=== PATIENT | female | born 1970 | race Caucasian/White ===

== ENCOUNTER 2023-06-16 07:30 | Outpatient (CLI) | payer OTHER, SELFPAY ==
--- NOTE | ~2023-06-16 | CT_ITS ---
CT of the Abdomen and Pelvis: Indication: Right upper quadrant pain Technique: 2.5 mm axial scans were obtained through the abdomen and pelvis following intravenous adm inistration of 100 cc of Omnipaque 350. Dose reduction technique was used on this scan by utilizing a utomated exposure control and iterative reconstruction technique. The dose-length product (DLP) was 5 55.39 mGy-cm. Findings: Scans through the lung bases are unremarkable. The liver, spleen, pancreas, gallbladder, adrenals and kidneys are within normal limits. No evidence of aortic aneurysm. No lymphadenopathy. No bowel obstruction or bowel wall thickening. There is no evidence to suggest acute appendicitis. Images through the pelvis were performed. Urinary bladder unremarkable. Patient appears to be post hy sterectomy. No pelvic mass seen. No ascites. Impression: No significant abnormalities seen. Reviewed, dictated and finalized at [facility]. HIATRIC ORDERLY Impression: No significant abnormalities seen.
== END 2023-06-16 07:31 | disposition home or self-care (01) ==
PROVIDERS: Visit Provider Nurse Practitioner
DX: R10.11 Right upper quadrant pain (principal); G89.29 Other chronic pain; K21.9 Gastro-esophageal reflux disease without esophagitis
CPT/HCPCS: 74177; Q9967

== ENCOUNTER 2023-09-29 00:59 | Day surgery (SDC) | payer OTHER, SELFPAY ==
[2023-09-16 14:54] VITALS: BMI 30.2
[2023-09-29 08:20] VITALS: BP 118/61; PULSE 90; RESP 18; TEMP 36.7; O2SAT 100; BMI 31.2
[2023-09-29] MEDS: LACTATED RINGERS 1,000 ML 150 ML IV CONT (08:33)
--- NOTE | 2023-09-29 08:44 | P.PNAN_ITS ---
Anes - Initial Pre Proc Eval Procedure: Operation Date: 09/29/23 09:30 Proposed Procedures p Esophagogastroduodenoscopy - Jameson Velazquez MD Date/Time: 09/29/23 08:44 Surgeon: Jameson Velazquez MD Pre Op Diagnosis: GERD,Right Upper Quad Pain,other Chronic pain Patient Data Age: 53 Gender: F Height: 1.6 m Weight: 80 kg Last Vital Signs Temp 98.0 F 09/29/23 08:20 Pulse 90 09/29/23 08:20 Resp 18 09/29/23 08:20 BP 118/61 09/29/23 08:20 Pulse Ox 100 09/29/23 08:20 O2 Del Method Room Air 09/29/23 08:20 Allergies Allergy/AdvReac Type Severity Reaction Status Date / Time Sulfa (Sulfonamide Allergy Intermediate Rash Verified 09/29/23 08:34 Antibiotics) Home Medications Medication Instructions Recorded Confirmed Type levothyroxine 125 mcg capsule 125 mcg PO DAILY 06/03/23 09/29/23 History bupropion HCl 150 mg 24 hr tablet, 150 mg PO DAILY 09/16/23 09/29/23 History extended release duloxetine 30 mg capsule,delayed 30 mg PO DAILY 09/16/23 09/29/23 History release Patient hx anesthesia problems: none Family hx anesthesia problems: none Results Review: All pre-operative results and documents have been reviewed as part of the pre- operative evaluation. [facility] Past Medical History Medical History (Updated 06/03/23 @ 15:38 by Charlene Dupree, RANDA) Chronic RUQ pain Depression with anxiety GERD (gastroesophageal reflux disease) Hypothyroid Obesity Surgical History Surgical History (Updated 06/03/23 @ 14:48 by Jason Esposito) H/O: hysterectomy Social History Social History Smoking status: Never smoker Substance use type: does not use Anes - Eval Final PreProcedure Day of Procedure 09/29/23 08:44 Patient weight: normal Heart: regular rate and rhythm Lungs: clear to auscultation Airway: Mallampati scale class II Neurological: alert and oriented Last oral intake: >/= 8 hours ASA classification: II Emergent: no Anesthetic plan: proceed Anesthesia type and monitoring: general GIVS and standard monitoring Results Review: All pre-operative results and documents have been reviewed as part of the pre-operative evaluation. Informed Consent: The patient's anesthetic plan and its attendant risks and benefits were discussed with the patient/family/POA. Questions were solicited and answers provided to the satisfaction of the patient/family/POA.
--- NOTE | 2023-09-29 09:26 | PM.HPGS ---
History of Present Illness History of Present Illness Consent: Risks, benefits, and alternatives have been discussed and questions answered. Patient agrees to proceed with procedure. Chief complaint: GERD,Right Upper Quad Pain,other Chronic pain Narrative: Carmen Crane is a 53 year old female with gerd and intermittent ruq pain for 20 years, CT scan no major findings, never had egd. Review of Systems Review of Systems: All systems reviewed & are unremarkable except as noted in HPI and below PMFSH Past Medical History Medical History (Updated 06/03/23 @ 15:38 by Charlene Dupree, [employer]T BUILDER HELPER) Chronic RUQ pain Depression with anxiety GERD (gastroesophageal reflux disease) Hypothyroid Obesity Surgical History Surgical History (Updated 06/03/23 @ 14:48 by Jason Esposito) H/O: hysterectomy Social History Social History Smoking status: Never smoker Substance use type: does not use Meds Home Medications and Allergies Home Medications Medication Instructions Recorded Confirmed Type levothyroxine 125 mcg capsule 125 mcg PO DAILY 06/03/23 09/29/23 History bupropion HCl 150 mg 24 hr tablet, 150 mg PO DAILY 09/16/23 09/29/23 History extended release duloxetine 30 mg capsule,delayed 30 mg PO DAILY 09/16/23 09/29/23 History release Allergies Allergy/AdvReac Type Severity Reaction Status Date / Time Sulfa (Sulfonamide Allergy Intermediate Rash Verified 09/29/23 08:34 Antibiotics) Vital Signs Vital Signs - 24 hr 09/29/23 08:20 Temperature 98.0 F Pulse Rate 90 Respiratory Rate 18 Blood Pressure 118/61 Pulse Oximetry 100 Oxygen Delivery Room Air Exam Const: General: comfortable and no acute distress HENMT: Face/Nose/Sinus: Normal nares present Eyes: General: appearance normal, both eyes and all related structures Neck: Neck: no JVD Resp: Auscultation: clear to auscultation bilaterally Cardio: Rate: regular rate Rhythm: regular rhythm GI: Inspection: non-distended GI Palp: Yes Soft to palpation Skin: General skin exam: normal color Neuro: General: gait normal Speech: normal speech Extrem: General: normal to inspection Psych: Mental Status: mental status grossly normal Assessment and Plan Assessment and plan (1) Chronic RUQ pain: Code(s): R10.11 - Right upper quadrant pain; G89.29 - Other chronic pain Status: Acute Assessment and Plan: egd with bx (2) GERD (gastroesophageal reflux disease): Code(s): K21.9 - Gastro-esophageal reflux disease without esophagitis Status: Acute
[2023-09-29 09:40] VITALS: BP 107/68; PULSE 77; RESP 18; O2SAT 97
[2023-09-29 09:50] VITALS: BP 106/68; PULSE 79; RESP 18; O2SAT 99
[2023-09-29 10:00] VITALS: BP 117/63; PULSE 77; RESP 18; O2SAT 100
== END 2023-09-29 10:09 | disposition home or self-care (01) ==
PROVIDERS: Visit Provider Internal Medicine Gastroenterology
PROC: 0DJ08ZZ Inspection of Upper Intestinal Tract, Via Natural or Artificial Opening Endoscopic (ICD-10-PCS; CPT 43235; principal; 2023-09-29 09:30)
DX: K29.50 Unspecified chronic gastritis without bleeding (principal); K29.80 Duodenitis without bleeding; K21.00 Gastro-esophageal reflux disease with esophagitis, without bleeding; K44.9 Diaphragmatic hernia without obstruction or gangrene; F41.8 Other specified anxiety disorders; E03.9 Hypothyroidism, unspecified; E66.9 Obesity, unspecified; Z68.31 Body mass index [BMI] 31.0-31.9, adult
CPT/HCPCS: 43239; 88305; J2001; J2704; J7120

== ENCOUNTER 2023-10-31 08:17 | Outpatient (CLI) | payer OTHER, SELFPAY ==
--- NOTE | ~2023-10-31 | XR_ITS ---
EXAMINATION: XR small bowel follow through DATE: 10/31/2023 10:44 INDICATION: Right upper quadrant pain TECHNIQUE: Supplier Quality Engineer radiograph(s) of the abdomen was/were obtained. Oral contrast was administered, and sequential radiographs of the abdomen were obtained until oral contrast was noted to be in the proxi mal colon. Spot fluoroscopic images of the small bowel were obtained. A total of 10 fluoroscopic imag es and 6 overhead radiographs were obtained. Fluoroscopy exposure time was 0.9 minutes. COMPARISON: None. FINDINGS: There is a small sliding-type hiatal hernia. Transit time from the stomach to proximal colon was appr oximately 1 hour and 30 minutes. There is normal caliber and mucosal fold pattern throughout the smal l bowel. Terminal ileum is normal. No tethering or abnormal mass effect observed upon the small bow el with real-time fluoroscopy. IMPRESSION: 1. Small sliding-type hiatal hernia. Otherwise normal small bowel follow-through. Reviewed, dictated and finalized at location A. IMPRESSION: 1. Small sliding-type hiatal hernia. Otherwise normal small bowel follow-throug h.
== END 2023-10-31 08:18 | disposition home or self-care (01) ==
PROVIDERS: Visit Provider Nurse Practitioner
DX: R10.11 Right upper quadrant pain (principal); G89.29 Other chronic pain; K29.80 Duodenitis without bleeding; K44.9 Diaphragmatic hernia without obstruction or gangrene
CPT/HCPCS: 74250